=== PATIENT | male | born 1995 | race Caucasian/White ===

== ENCOUNTER 2024-01-17 21:15 | Emergency (ER) | payer OTHER ==
[~2024-01-17] VITALS: Ht 185.4 cm; Wt 98.6 kg
[2024-01-17] MEDS ORDERED: ACET-683 PO (21:26)
[2024-01-18] MEDS: TAMSULOSIN 0.4 MG CAP PO ONE (00:20)
[2024-01-18] MEDS: KETOROLAC 30 MG/ML 1ML VIAL IV ONE (00:20)
[2024-01-18] MEDS ORDERED: FLOM0.4C39 PO (01:35)
[2024-01-18] MEDS ORDERED: PERC5TAB12 PO (01:35)
[2024-01-18] MEDS ORDERED: ONDA4TAB6 PO (01:35)
[2024-01-18] MEDS: OXYCODONE/APAP 5MG/325MG(HOME DOSE PACK) PO ONE (01:53)
[2024-01-18 01:56] VITALS: BP 126/75; TEMP 97.6; O2SAT 98
== END 2024-01-18 01:58 | disposition home or self-care (01) ==
LOC: M ED 21:15
DX: N20.1 Calculus of ureter (principal); F10.10 Alcohol abuse, uncomplicated; Z79.83 Long term (current) use of bisphosphonates; Z79.1 Long term (current) use of non-steroidal anti-inflammatories (NSAID); Z79.899 Other long term (current) drug therapy
CPT/HCPCS: 74176; 81001; 96374; 99284; J1885